=== PATIENT | male | born 1970 | race African-American/Black ===

== ENCOUNTER 2020-10-02 15:47 | Inpatient (IN) | payer OTHER, SELFPAY ==
[~2020-10-02 15:47] MED LIST: Iopamidol-370 76% 500 ML 1 ML ONE
[2020-10-02] MEDS ORDERED: Morphine 4 MG/ML VIAL ONE ×2 (16:04→18:08)
[2020-10-02] MEDS ORDERED: Boostrix 0.5 ML (Tdap) VIAL ONE (16:04)
[2020-10-02 16:20] LABS: #Basophils 0.1 thou/uL (0.0-0.2); #Eosinphils 0.1 thou/uL (0.0-0.7); #Lymphocytes 2.2 thou/uL (1.20-3.40); #Monocytes 0.6 thou/uL (0.11-0.59); #Neutrophils 4.8 thou/uL (1.40-6.50); %Basophils 1.3 % (0.0-1.0); %Eosinophils 0.9 % (0.0-10.0); %Lymphocytes 28.5 % (21.0-51.0); %Neutrophils 61.3 % (42.0-75.0); Hemoglobin 15.1 g/dL (14.0-18.0); Mean Corpuscular HGB CONC 32.5 g/dL (32.0-36.0); Mean Corpuscular Hemoglobin 28.8 pg (27.0-31.0); Mean Corpuscular Volume 88.5 fL (78.0-98.0); Mean Platelet Volume 8.2 fL (7.4-10.4); Platelet Count 236 thou/uL (130-400); RBC Distribution Width 13.2 % (11.5-14.5); Red Blood Cell (RBC) Count 5.27 mill/uL (4.70-6.10); White Blood Cell (WBC) Count 7.9 thou/uL (4.8-10.8)
--- NOTE | 2020-10-02 16:36 | CT ---
Exam: CT cervical spine without contrast HISTORY: Level 2 trauma. Patient was bucked off a horse. Landed on the back of her head. COMPARISON: None FINDINGS: No craniocervical dissociation. Appropriate alignment of the lateral masses of C1 and C2. Intact odon toid process Appropriate alignment of the facets. Straightening of normal cervical lordosis may be due to patient position, muscle spasm or cervical co llar. Soft tissue neck structures: No mass, lymphadenopathy or hematoma. No prevertebral soft tissue swelli ng. Upper mediastinum and lung apices: Unremarkable Central spinal canal: Neural foramina and central spinal canal are patent. Evaluation is limited by t echnique Vertebral bodies: Cervical spine vertebral body height is maintained. No fracture. IMPRESSION: 1. No cervical spine fracture. 2. Straightening of normal cervical lordosis as detailed above. If there is concern for ligamentous i njury, consider MRI.
[2020-10-02 16:44] LABS: ALT (SGPT) 27 U/L (8-55); AST (SGOT) 33 U/L (5-34); Albumin 4.1 g/dL (3.5-5.0); Alkaline Phosphatase 63 U/L (40-110); Anion Gap 16 mmol/L (10-20); BUN (Urea Nitrogen) 16 mg/dL (8.9-20.6); Bilirubin, Total 0.4 mg/dL (0.2-1.2); Calc. Creatinine Clearance 0 mL/min (70-130); Calcium 9.1 mg/dL (7.8-10.44); Carbon Dioxide 24 mmol/L (22-29); Chloride 104 mmol/L (98-107); Estimated GFR-MDRD 45; Globulin 3.2 g/dL (2.4-3.5); Glucose 108 mg/dL (70-105); Lipase 35 U/L (8-78); Potassium 3.9 mmol/L (3.5-5.1); Protein, Total 7.3 g/dL (6.0-8.3); Sodium 140 mmol/L (136-145)
--- NOTE | 2020-10-02 16:48 | CT ---
CT HEAD WITHOUT IV CONTRAST COMPARISON: None HISTORY: Level 2 trauma. Patient bucked off of a horse. Laceration to back of head. TECHNIQUE: Axial CT imaging at 5 mm intervals from vertex through skull base without contrast FINDINGS: There is increased density seen within the cerebral sulci in the bifrontal regions and left temporal lobe and greater in the region of the sylvian fissures bilaterally suggestive of subarachnoid hemorrhage. There is minimal amount of increased density seen in the anterior aspect of the left midd le cranial fossa which may represent a tiny subdural hemorrhage measuring 4 mm in greatest transverse dimension. Tiny amount of hemorrhage is seen in a right anterior frontal subdural location measuring less than 2 mm in greatest transverse dimensions. Trace amount of subdural hemorrhage in right parafalcine location anteriorly. There is no mass effect or midline shift. No acute cortical infarction is seen. The ventricular syste m is normal in size, shape, and position. Opacification of several left mastoid air cells are visualized. Better seen on CT facial bones obtain ed on this date, there is a transverse fracture extending through the mastoid portion of the left temporal bone as well as a nondisplaced fracture involving the squamosal portion of the left temporal bone. Fractures are better delineated on CT facial bones. . There is increased density fluid seen within the left sphenoid sinus suggesting hemorrhage. Mucous re tention cyst is seen in the right frontal sinus. There is scalp soft tissue swelling seen in the posterior parietal region IMPRESSION: 1. Evidence of intracranial hemorrhage with bifrontal subarachnoid hemorrhage as well as tiny subdura l hemorrhages along the inner table right anterior frontal bone as well as along the inner table of the left temporal region with tiny amount of subdural hemorrhage in a parafalcine location anteriorly on the right. Tiny subarachnoid hemorrhage is seen anteriorly in a prepontine location. 2. Fractures involving the mastoid as well as squamosal portions of the left temporal bone with subse quent opacification of left mastoid air cells. Please see CT scan facial bones for further details. 3. Hemorrhage within the left sphenoid sinus. A definite fracture is difficult to discern on this non enhanced CT scan of the head but there may be fracture involving the posterior wall of the left sphenoid sinus. 4. Posterior parietal scalp hematoma. 5. Above findings discussed with Dr. Copeland in the emergency department on 10/02/2020.
--- NOTE | 2020-10-02 16:48 | CT ---
Exam: Facial bone CT without contrast HISTORY: Level 2 trauma. Pain. FINDINGS: There does appear to be the left frontal sinus as well as anterior parafalcine subdural hematomas. Th ere is evidence of subarachnoid hemorrhage in the left and right sylvian fissure is. Visualized calvarium does not demonstrate a fracture. There is asymmetric opacification left mastoid air cells, left middle ear left external artery canal. There is a horizontal fracture/transverse is a fracture involving the bony left external auditory canal. Bilateral mandibular condyles are appropr iately located. Mandible is intact. Maxilla is intact. Zygomatic arches are intact. Osseous margins of the sinuses and mastoid air cells are intact. No nasa l bone fracture Partial opacification of the right frontal sinus. There is partial opacification left sphenoid sinus, with possible blood. Possible posterior sphenoid sinus fracture. Adequate aeration of the ethmoid air cells and bilateral maxillary sinuses. Bilateral ostiomeatal complexes are patent. IMPRESSION: 1. Fracture involving the left sphenoid sinus. 2. Left temporal bone fracture with associated posttraumatic hemorrhage in the mastoid air cells. Fra cture lucency extends into the bony left external auditory canal and canal with no evidence of hemorrhage in the extra and canal and neural. Results the cervical spine CT and facial bone CT discussed with Dr. Copeland 10/02/2020 at 4:44 PM code CR
--- NOTE | 2020-10-02 17:02 | CT ---
Exam: Chest CT with contrast Abdomen CT with contrast Pelvic CT with contrast CT of the thoracic and lumbar spine HISTORY: Level 2 trauma. Bucked off horse. Laceration. Correlation: None COMPARISON: None FINDINGS: Chest CT: Mediastinum: No mass, lymphadenopathy or hematoma. Aorta: The thoracic and abdominal aorta are normal caliber. No periaortic fat stranding. Heart: Normal heart size. No significant pericardial fluid Trachea and central bronchi: Patent Pleural spaces: No pleural effusion Right lung: Dependent atelectatic changes. No consolidation or contusion Left lung:Dependent atelectatic change. No consolidation or contusion. Pneumothorax: None Abdomen CT: Gallbladder: Unremarkable Portal vein: Patent Liver: Multiple subcentimeter hypodensities, too small to characterize.. Small enhancing foci, too sm all to characterize. Enhancing focus in the right hepatic lobe measures 1.2 x 0.9 cm. Spleen: Appropriate enhancement Pancreas: Appropriate enhancement Adrenal glands: There is nodularity the left or right adrenal gland, incompletely evaluated. Lymphadenopathy: No gastrohepatic, retrocrural or periportal lymphadenopathy Kidneys: Symmetric enhancement. No obstructive uropathy. Subcentimeter hypodense lesion in the right renal cortex cannot be further characterize. Mesentery: No mass, lymphadenopathy, free air or free fluid Alimentary canal: Gastric mucosa, duodenum and multiple normal caliber small bowel loops are identifi ed. Normal ileocecal junction. Scattered fecal material in nondistended, nondilated colon. There is diverticulosis. No diverticulitis. Evaluation the alimentary canal is limited by the lack of oral con trast Pelvis CT: No mass, nephropathy, free air or free fluid. Presacral fat is preserved. Osseous structures: Thorax: Scapula, sternum, clavicles and ribs are intact. No posttraumatic change. Pelvis: Intact bony pelvis. Intact obturator rings. Sacral ala are preserved. No evidence of a left o r right hip fracture. CT of the thoracic and lumbar spine: No fractures or malalignment. IMPRESSION: 1 No posttraumatic change in the chest abdomen pelvis 2. Nodularity left and right adrenal gland, incompletely evaluated. Indeterminate lesions of the live r. Nonemergent abdomen MRI. Results of the exam discussed with Dr. Mendieta 10/02/2020 at 4:58 PM Code CR
[2020-10-02 17:13] LABS: PTT 25.5 sec (22.9-36.1); Prothrombin Time 12.9 sec (12.0-14.7)
[2020-10-02] MEDS ORDERED: Milk Of Magnesia 30 ML UDCUP PO PRN (17:36)
[2020-10-02] MEDS ORDERED: Promethazine HCl 25 MG/ML VIAL IM PRN (17:36)
[2020-10-02] MEDS ORDERED: hydrALAZINE 20 MG/ML VIAL SLOW IVP PRN (17:36)
[2020-10-02] MEDS ORDERED: Acetaminophen 325 MG TAB PO PRN (17:36)
[2020-10-02] MEDS ORDERED: Labetalol HCl 100 MG/20 ML VIAL SLOW IVP PRN (17:36)
[2020-10-02] MEDS ORDERED: Promethazine 25 MG TAB PO PRN (17:36)
[2020-10-02] MEDS ORDERED: Docusate 100 MG CAP PO PRN (17:36)
[2020-10-02] MEDS ORDERED: Ondansetron PF 4 MG/2 ML Vial ONE (18:08)
--- NOTE | 2020-10-02 20:41 | HP ---
REQUESTING PHYSICIAN: Dr. Burak Copeland MD CONSULTATIONS: Neurosurgery, Dr. Driver. HISTORY OF PRESENT ILLNESS: The patient is a 50-year-old man who was riding a horse. When it threw him, he fell backwards and reportedly hit the back of his head. He denied loss of consciousness. He was brought to the emergency department as a level 2 trauma activation, where he underwent evaluation and examination, and was noted to have acute traumatic subarachnoid hemorrhages, temporal bone fracture, and a small traumatic subdural hemorrhage; at which time, we were asked to evaluate the patient for admission and obtain Neurosurgical consultations. ALLERGIES: NONE. CURRENT MEDICATIONS: None. PAST MEDICAL HISTORY: None, though the patient states that he believes he does have high blood pressure. The patient reports anxiety and bipolar disorder. PAST SURGICAL HISTORY: None. SOCIAL HISTORY: The patient smokes approximately one pack of cigarettes per day. Occasional alcohol use. Denies drug use. He is employed as a pie bakery laborer. He is currently single. REVIEW OF SYSTEMS: A 10-point review of systems is negative as otherwise stated. PHYSICAL EXAMINATION: VITAL SIGNS: Blood pressure 168/98, heart rate 91, respirations 15, oxygen saturation 95% on room air, and temperature 98.3. GENERAL: The patient is resting comfortably in bed. He is asleep when I entered, the patient has since arriving in the emergency department been given 12 mg of morphine over approximately 2-1/2 hours. The latest was 4 mg just prior to my arrival. The patient will open his eyes and answer my questions. He does follow commands giving him a Kermit Coma Scale of 14, -1 for eye opening. The nurses report this has been consistently his Terence Coma Scale and at times, he will be -1 for confusion. HEENT: Head is normocephalic with small abrasion to the occiput and left ear. His eyes, PERRLA bilaterally. Extraocular motion intact. Ears, left ear has dried blood in the external auditory canal. Right ear is clear. Nose, a small amount of dried blood in the left naris. Oropharynx is clear. NECK: Nontender. Trachea is midline with no JVD. CHEST: Clear to auscultation with good inspiratory and expiratory effort. HEART: Regular rate and rhythm. ABDOMEN: Soft, flat, nontender with active bowel sounds. EXTREMITIES: Neurovascularly intact x4. LABORATORY FINDINGS: White blood cell count 7.9, hemoglobin 15.1, hematocrit 46.6, and platelets 236. Sodium 140, potassium 3.9, chloride 104, CO2 of 24, BUN 16, creatinine 1.92, glucose 108. LFTs are unremarkable. Lipase 35. PT 13, INR 1.0, PTT 26. RADIOGRAPHIC REPORTS: CT of the brain without contrast shows evidence of intracranial hemorrhage with bifrontal subarachnoid hemorrhage as well as tiny subdural hemorrhages along the inner table, right anterior frontal bone as well as along the inner table of the left temporal region with tiny amount of subdural hemorrhage in the parafalcine location anterior on the right. There is a tiny subarachnoid hemorrhage seen anteriorly in the prepontine location. There are fractures involving the mastoid as well as squamous portion of the left temporal bone with subsequent opacification of the left mastoid air cell. There was hemorrhage noted within the left sphenoid sinus. CT of the facial bones without contrast shows again fracture involving the left sphenoid sinus, the left temporal bone fracture with associated posttraumatic hemorrhage in the mastoid air cells. Fracture lucency extends into the bony left external auditory canal and canal with no evidence of hemorrhage in the extra-auditory canal. CT of the C-spine without contrast shows no cervical spine fracture. CT of the chest, abdomen, and pelvis with IV contrast shows no posttraumatic changes in the chest, abdomen, or pelvis. ASSESSMENT: 1. Status post ejection from livestock, thrown from horse. 2. Traumatic subarachnoid hemorrhage. 3. Traumatic subdural hemorrhage. 4. Multiple skull fractures and facial fractures. 5. Altered mental status, secondary to above. PLAN: Plan will be to admit the patient to the surgical floor. He has been evaluated by Neurosurgery in the emergency department. The recommendation is repeat neuro exams every 2 hours and a followup CT of the brain in the morning. We have added a CT of the auditory canals in light of his fracture pattern. We will do pulmonary toilet, gastritis, and mechanical VTE prophylaxis, and narcotic pain management. The evaluation, examination, laboratory, and radiographic findings were discussed with Dr. Hdz nearly after this dictation. Job ID: [id number]
[2020-10-02] MEDS ORDERED: Ondansetron ODT 4 MG TAB PO PRN (21:01)
[2020-10-02] MEDS ORDERED: Dextrose 5% in Water 1,000 ML IV PRN (21:01)
[2020-10-02] MEDS ORDERED: Sodium Chloride 0.9% 1,000 ML IV SCH (21:01)
[2020-10-02] MEDS ORDERED: traMADol HCl 50 MG TAB PO PRN (21:01)
[2020-10-02] MEDS ORDERED: Ondansetron PF 4 MG/2 ML Vial IVP PRN (21:01)
[2020-10-02] MEDS ORDERED: Dextrose 50% Abboject 50 ML SYRINGE SLOW IVP PRN (21:01)
[2020-10-02] MEDS: Sodium Chloride 0.9% 1,000 ML IV SCH (22:04)
[2020-10-02] MEDS: levETIRAcetam 500 MG TAB PO SCH (22:04)
[2020-10-02] MEDS: Acetaminophen 500 MG TAB PO SCH (23:23)
[2020-10-02 23:50] VITALS: BMI 35.6
[2020-10-03] MEDS: Acetaminophen 500 MG TAB PO SCH ×3 (04:56→17:26)
[2020-10-03 05:08] LABS: #Monocytes 0.9 thou/uL (0.11-0.59); #Neutrophils 8.3 thou/uL (1.40-6.50); %Basophils 0.1 % (0.0-1.0); %Eosinophils 0.1 % (0.0-10.0); %Monocytes 8.6 % (0.0-10.0); %Neutrophils 81.2 % (42.0-75.0); Mean Corpuscular HGB CONC 32.5 g/dL (32.0-36.0); Mean Platelet Volume 8.3 fL (7.4-10.4); Platelet Count 222 thou/uL (130-400); Red Blood Cell (RBC) Count 4.82 mill/uL (4.70-6.10); White Blood Cell (WBC) Count 10.3 thou/uL (4.8-10.8)
[2020-10-03 05:25] LABS: Anion Gap 14 mmol/L (10-20); BUN (Urea Nitrogen) 18 mg/dL (8.9-20.6); Calc. Creatinine Clearance 109 mL/min (70-130); Carbon Dioxide 24 mmol/L (22-29); Chloride 103 mmol/L (98-107); Estimated GFR-MDRD 70; Glucose 121 mg/dL (70-105); Sodium 137 mmol/L (136-145)
--- NOTE | 2020-10-03 07:20 | PRG ---
DATE OF SERVICE: 10/03/2020 I personally interviewed and examined the patient, agreed with documentation of Nahid Moffett PA-C, dated 10/02/2020. Briefly, Dmitri Lozano was riding a horse yesterday when he was thrown from the horse. He fell and injured his head. He is brought to the emergency department, where CT examination of the spine was negative, but CT examination of brain revealed a temporal bone fracture on the left side and bilateral traumatic subarachnoid hemorrhage. He has been observed overnight and scan has been done this morning. Mr. Lozano feels a bit tired, but otherwise he is well. He is hungry and waiting for breakfast. Among the electronically recorded vital signs, I do not see any fevers. Blood pressures have been in the 100s to 130s. Mr. Lozano wakes up when I see him. His cranial nerves are working well. He is moving all extremities well. Does not have any lateralizing motor or sensory deficits. CT examination of brain this morning already shows significant washout of the traumatic subarachnoid blood. There is a bit remaining in the sylvian cistern on the left side, but the rest is gone. There is no mass effect. There is no subdural, epidural, or cerebral contusion. Temporal bone fracture is present, but there is no pneumocephalus. Mr. Lozano should avoid any blood thinning agents for the next 2 weeks. He is going to make a slow recovery. He is going to have headaches for a number of weeks, but they should slowly recede over time. He should not get back on a horse until he is 100% symptom-free, especially not get back on a horse who will michael him. Followup arrangements will be made in our clinic with a CT scan of the brain in about 3 weeks. We will call him with those results. Job ID: [id number] [facility]ERS[facility]
--- NOTE | 2020-10-03 07:38 | CT ---
PRELIMINARY REPORT/[facility]/EMERGENCY AFTER HOURS PROCEDURE EXAM: CT Head Without Intravenous Contrast. CLINICAL HISTORY: F/U [facility] TECHNIQUE: Axial computed tomography images of the head/brain without intravenous contrast. COMPARISON: October 02, 2020 FINDINGS: BRAIN: No acute intraparenchymal hemorrhage. No mass lesion. No CT evidence for acute territorial infarct. Diffuse subarachnoid hemorrhage noted on prior study is again seen but has diminished slightly in the interval, especially on the right. Question of a small interhemispheric subdural collection less conspicuous as well. Mastoid and paranasal sinus opacities are grossly unchanged. VENTRICLES: No hydrocephalus. IMPRESSION: Slight interval improvement. ELECTRONICALLY SIGNED BY: Nahid Hastings MD Oct 03, 2020 4:34:17 AM CAPACITOR TESTER This report is intended for review by the ordering physician only, in accordance of law. If you recei ve this report in error, please call [facility] at [phone]. FINAL REPORT Exam: Head CT without contrast HISTORY: Subarachnoid hemorrhage. Follow-up exam. COMPARISON: 10/02/2020 FINDINGS: Hemorrhage: Redemonstration of multifocal subarachnoid hemorrhage. The degree of subarachnoid blood h as decreased. Decreasing anterior parafalcine subdural hematoma. Brain parenchyma: Cortical soler-white matter differentiation is preserved. No mass effect or midline shift. Basilar cisterns are patent. Ventricular system: Ventricles and sulci are patent and symmetric. Calvarium: Intact. Sinuses and mastoid air cells: Stable opacification of the left sphenoid sinus and left mastoid air c ells. Previously noted opacification of the left middle ear and external auditory canal has decreased. IMPRESSION: 1. This report is in agreement with initial report by [facility]. 2. Decreased subarachnoid hemorrhage. Stable posttraumatic changes. Refer to earlier CT for further detail. Transcribed Date/Time: 10/03/2020 8:26 AM
--- NOTE | 2020-10-03 07:45 | CT ---
PRELIMINARY REPORT/[facility]/EMERGENCY AFTER HOURS PROCEDURE EXAM: CT Temporal Bones Without Intravenous Contrast. CLINICAL HISTORY: Eval for fx This is a CT IAC TECHNIQUE: Axial computed tomography images of the temporal bones without intravenous contrast. CONTRAST: Without COMPARISON: None provided. FINDINGS: There is a nondisplaced longitudinal fracture through the temporal bone on the left diffuse mastoid o pacities are present with intact tympanic membrane and middle ear structures. Opacification of the left sphenoid sinus although fracture extension into the sinus is not clearly visible. Inner ear structures are symmetric. TMJs and visualized facial bones are normal. There is partial opacification of the mastoid air cells also on the right without an associated fract ure. IMPRESSION: Nondisplaced longitudinal fracture through the left temporal bone. No clear complications of this fr acture identified. ELECTRONICALLY SIGNED BY: Nahid Hastings MD Oct 03, 2020 4:42:31 AM TEACHER ADVISOR This report is intended for review by the ordering physician only, in accordance of law. If you recei ve this report in error, please call [facility] at [phone]. FINAL REPORT Exam: Temporal bone CT without contrast HISTORY: Trauma. Pain. Intracranial hemorrhage. Asymmetric opacification of the left mastoid air fritz ls. Left mastoid fracture. FINDINGS: Right IAC/temporal bone: No posttraumatic changes. Left IAC/temporal bone: The internal auditory canal, cochlea, vestibule and semicircular canals have an appropriate appearance and configuration. Ossicular chain is intact. Stapedial footplate is probably located. Appropriate aeration of the middle ear. Facial nerve appears to be unremarkable. Te gmen tympani and tegmen mastoideum are preserved. There is partial opacification of the left mastoid air cells. There is a longitudinal fracture involving the left mastoid air cells. There is mi ld thickening of the external auditory canal soft tissues. There is a fracture involving the anterior margin of the bony left external auditory canal. IMPRESSION: 1. This report is in agreement with initial report by [facility]. 2. Longitudinal fracture involving the left temporal bone. Associated posttraumatic changes. 3. There is a fracture involving the anterior margin of the bony left external auditory canal. Transcribed Date/Time: 10/03/2020 8:29 AM
--- NOTE | 2020-10-03 07:48 | CON ---
DATE OF CONSULTATION: 10/02/2020 CHIEF COMPLAINT: Thrown from horse. HISTORY OF PRESENT ILLNESS: Mr. Lozano is a 50-year-old gentleman who presents to the emergency room today being ejected from his horse. The patient states something spooked his horse and he did not have the proper boots on and was unable to get any traction and fell off his horse. He states he never lost consciousness and is only complaining of a headache. No other pain. Head CT shows some evidence of an intracranial hemorrhage with bifrontal subarachnoid hemorrhage as well as a tiny subdural hemorrhage. Patient reports he is not on any blood thinners. The patient on exam is moving all his extremities. He denies any extremity weakness, bowel or bladder dysfunction. REVIEW OF SYSTEMS: CONSTITUTIONAL: Denies fever or chills. ENT: Denies change in vision or hearing. CARDIAC: Denies chest pain, shortness of breath, or diaphoresis. PULMONARY: Denies shortness of breath, cough, or hemoptysis. GI: Denies fecal incontinence, nausea, vomiting, diarrhea, change in stool formation and consistency. : Denies urinary incontinence, trouble with urination, frequency of urination, or bloody urine. SKIN: Reports bruising, abrasions, bleeding. MUSCULOSKELETAL: As per history of present illness. NEUROLOGICAL: As per history of present illness. PSYCHOLOGICAL: As per history of present illness. PAST MEDICAL HISTORY: No past medical history. PAST SURGICAL HISTORY: No surgical history. PSYCHIATRIC HISTORY: 1. Anxiety. 2. Bipolar disorder. SOCIAL HISTORY: The patient denies alcohol or illicit drugs. The patient currently smokes cigarettes. MEDICATIONS: None. ALLERGIES: NO KNOWN DRUG ALLERGIES. FAMILY HISTORY: Noncontributory/not relevant. PHYSICAL EXAMINATION: HEENT: Pupils are equal. Extraocular movements are intact. NECK: Soft and supple. No masses are noted. Range of motion is intact and nonpainful. NEUROLOGICAL: Awake, alert, and oriented x3. Memory, attention, fund of knowledge, and language are normal. Cranial nerves grossly intact. Upper and lower extremities, normal. Free active range of motion in all extremities. No focal motor weakness. No reflex asymmetry. GCS 15. IMAGING DATA: Head CT, evidence of intracranial hemorrhage with bifrontal subarachnoid hemorrhage as well as a tiny subdural hemorrhage. CT of the cervical spine showed no cervical spine fractures. ASSESSMENT: Subarachnoid hemorrhage, subdural hemorrhage. PLAN: Repeat CT of the brain tomorrow morning. If scan shows improvement or no change, transfer care to Trauma Service. Supportive care. No intracranial surgery at this time. We will have him follow up in 2 to 3 weeks in our clinic and repeat the scan prior to the visit. Job ID: [id number] MTDD
[2020-10-03] MEDS: levETIRAcetam 500 MG TAB PO SCH ×2 (08:32→20:48)
[2020-10-03] MEDS ORDERED: Famotidine 20 MG TAB PO SCH (09:00)
[2020-10-03] MEDS: Sodium Chloride 0.9% 1,000 ML IV SCH (11:40)
[2020-10-03 12:14] LABS: SARS-CoV-2 MS2 Positive; SARS-CoV-2 N Gene Negative; SARS-CoV-2 S Gene Negative; SARS-CoV-2 by NAA Not Detected (NotDetected); SARS-CoV-2 orf1ab Negative
[2020-10-03] MEDS ORDERED: Acetaminophen 325 MG TAB PO PRN (13:50)
[2020-10-03] MEDS: Nicotine 14 MG PATCH TD SCH (15:37)
--- NOTE | 2020-10-03 16:06 | RAD ---
SACRUM AND COCCYX 3 VIEWS: Date: 10/03/2020 HISTORY: patient fell off horse. FINDINGS: SI joints are symmetric. On the lateral view, there is some cortical irregularity near the sacrococcy geal junction. This is suspicious for a nondisplaced fracture. IMPRESSION: Findings suspicious for a nondisplaced fracture near the sacrococcygeal junction. POS: SAMIA
[2020-10-03] MEDS: traMADol HCl 50 MG TAB PO PRN (20:48)
[2020-10-04] MEDS: Acetaminophen 500 MG TAB PO SCH ×5 (00:35→23:20)
[2020-10-04] MEDS: Sodium Chloride 0.9% 1,000 ML IV SCH ×2 (00:36→12:58)
--- NOTE | 2020-10-04 03:35 | PRG ---
DATE OF SERVICE: SUBJECTIVE: Patient was seen this evening during rounds. He was taking a shower. He reported no acute events and no concerns. Nursing reported no acute events. OBJECTIVE: VITAL SIGNS: Temperature 97.9, pulse 78, respirations 20, oxygen saturation 97% on room air, and blood pressure 119/68. GENERAL: Well-appearing middle-aged male with no signs of acute distress. PULMONARY: Equal chest rise and fall. No signs of acute respiratory distress. ASSESSMENT: 1. Status post ejection from horse. 2. Intracranial hemorrhage with bifrontal subarachnoid hemorrhages and subdural hemorrhages. 3. Temporal bone fracture. 4. Left sphenoid sinus fracture. 5. Sacral fracture. 6. History of anxiety and bipolar disorder. 7. Acute kidney injury, improving. PLAN: Continue current diet and pain regimen. Continue physical and occupational therapy. Continue normal saline at 75 an hour. Repeat blood work in the morning. Patient is uninsured and will likely need to be discharged home to family care. We will reevaluate resources in the morning. Job ID: [id number]
[2020-10-04] MEDS: traMADol HCl 50 MG TAB PO PRN (05:17)
[2020-10-04 06:12] LABS: Anion Gap 10 mmol/L (10-20); BUN (Urea Nitrogen) 13 mg/dL (8.9-20.6); Calc. Creatinine Clearance 119 mL/min (70-130); Calcium 8.5 mg/dL (7.8-10.44); Carbon Dioxide 26 mmol/L (22-29); Chloride 105 mmol/L (98-107); Estimated GFR-MDRD 79; Glucose 116 mg/dL (70-105); Phosphorus 2.2 mg/dL (2.3-4.7); Sodium 137 mmol/L (136-145)
--- NOTE | 2020-10-04 06:34 | PRG ---
DATE OF SERVICE: 10/03/2020 SUBJECTIVE: The patient is a 50-year-old male, status post ejection from horse with resulting subarachnoid hemorrhage, subdural hemorrhage, and multiple skull and facial fractures. Hospital day 1. The patient reports pain to the back of the head related to where he fell as well as buttock and tailbone pain. He states that the pain medication has not been helpful thus far. He requests a nicotine patch due to inability to smoke cigarettes while admitted to the hospital. He was placed on clear fluids this morning until repeat CT of the brain was completed. He states that he did not eat breakfast as a result. PHYSICAL EXAMINATION: VITAL SIGNS: Temperature 98.0 degrees Fahrenheit, blood pressure 122/70, heart rate 81, respiratory rate 18, oxygen saturation 96% on room air. GENERAL APPEARANCE: The patient is sitting comfortably in a chair beside his bed. He is currently eating his meal. He is conversational, alert, and oriented. [place] Coma Score is 15. HEENT: Small abrasion present to the occiput and left ear. Head is normocephalic. Extraocular movements are intact. Left ear has dried blood present on the external auditory canal. HEART: Regular rate and rhythm. ABDOMEN: Soft, nontender. Positive bowel sounds. EXTREMITIES: Neurovascularly intact x4. LABORATORY FINDINGS: White blood cell count 10.3, hemoglobin 14.0. Sodium 137, potassium 4.0, creatinine 1.31, improved from 1.92 upon admission on 10/02. RADIOGRAPHIC FINDINGS: Repeat CT of the brain showed slight interval improvement of the subarachnoid hemorrhage, especially on the right. Small interhemispheric subdural collection is less conspicuous on repeat scan. Internal auditory canal CT is significant for a nondisplaced longitudinal fracture through the left temporal bone without complications identified. ASSESSMENT AND PLAN: 1. Status post ejection from livestock specifically horse. 2. Traumatic subarachnoid hemorrhage, improved. 3. Traumatic subdural hemorrhage, improved. 4. Longitudinal temporal fracture. 5. Altered mental status, resolved. The patient was encouraged to continue working with Physical and Occupational Therapy. He will continue using pulmonary toilet. Continue gastritis and mechanical VTE prophylaxes. The patient's tramadol 50 mg q.6 p.r.n. will be increased to tramadol 100 mg q.6 p.r.n. He will be started on a nicotine 14 mg patch. Fluids will be potentially discontinued this afternoon once the patient has adequate PO intake. Speech pathology has been consulted for cognition followup. Sacral x-ray will be ordered to follow up on sacral pain. The patient was seen and evaluated by Dr. Lantigua during morning rounds. The plan of care was discussed with the patient who is in agreement. Job ID: [id number] MTDD
[2020-10-04] MEDS ORDERED: Acetaminophen/Codeine 30-300mg Tablet PO PRN (08:43)
[2020-10-04] MEDS ORDERED: traMADol HCl 50 MG TAB PO SCH (08:45)
[2020-10-04] MEDS ORDERED: FLU VACC QS2020-21(6MOS UP)/PF 60 MCG/0.5 ML SYRINGE IM ONE (09:00)
[2020-10-04] MEDS ORDERED: Acetaminophen/Codeine 30-300mg Tablet PO SCH (09:00)
[2020-10-04] MEDS: Gabapentin 300 MG CAP PO SCH ×3 (09:59→21:17)
[2020-10-04] MEDS: levETIRAcetam 500 MG TAB PO SCH ×2 (09:59→21:17)
[2020-10-04] MEDS: diphenhydrAMINE 50 MG CAP PO PRN ×2 (13:01→23:23)
[2020-10-04] MEDS: Nicotine 14 MG PATCH TD SCH (14:56)
--- NOTE | 2020-10-04 21:28 | PRG ---
DATE OF SERVICE: 10/04/2020 SUBJECTIVE: The patient is a 50-year-old male status post ejection from a horse with a resulting subarachnoid hemorrhage, subdural hemorrhage and multiple skull and facial fractures. Hospital day 2. The patient reports continued pain at the back of his head and at his tailbone. He states that the medication has not been effective in improving this pain. He states that he is tolerating his diet well. He worked with speech pathology yesterday, who remarks that his cognitive impairment is moderate. They are currently following. The patient states that he is unable to ambulate due to pain. Case Management rehab screening has been ordered and will be followed up. OBJECTIVE: VITAL SIGNS: Temperature 97.7 degrees Fahrenheit, blood pressure 132/83, heart rate 75, respiratory rate 18, and oxygen saturation 97% on room air. GENERAL APPEARANCE: The patient is sitting in the bed. He is conversational, alert, and oriented. [place] coma scale is 15. HEENT: Small abrasion present to the occiput and left ear. Head is normocephalic. Extraocular movements are intact. HEART: Regular rate and rhythm. ABDOMEN: Soft and nontender. Positive bowel sounds. EXTREMITIES: Neurovascularly intact x4. LABORATORY FINDINGS: Sodium 137, potassium 4.0, creatinine 1.19, phosphorus 2.2, and magnesium 2.0. Radiographic data, nondisplaced fracture near the sacrococcygeal junction. ASSESSMENT AND PLAN: 1. Status post ejection from livestock, specifically horse. 2. Traumatic subarachnoid hemorrhage, improved. 3. Traumatic subdural hemorrhage, improved. 4. Longitudinal temporal fracture. 5. Nondisplaced fracture at the sacrococcygeal junction. Plan is to continue supportive care. The patient was encouraged to continue working with Physical and Occupational therapy. Rehab screening has been placed to case management and will follow up appropriately. We will continue using pulmonary toilet, gastritis and mechanical venous thromboembolism prophylaxis. The patient has been discontinued from tramadol due to temporal subarachnoid hemorrhage. He will be started on Tylenol No.3. The patient will also be started on gabapentin. Hypophosphatemia will not be supplemented as the patient is eating an appropriate diet. The patient was seen and evaluated by Dr. Lantigua during morning rounds. The plan of care was discussed with the patient who is in agreement. Job ID: [id number] [facility]
--- NOTE | 2020-10-05 01:24 | PRG ---
DATE OF SERVICE: SUBJECTIVE: Patient was seen this evening during rounds. He was lying in bed, resting comfortably and asleep with no signs of acute distress. Nursing reported no acute events. OBJECTIVE: VITAL SIGNS: Temperature 97.9, pulse 72, respirations 16, oxygen saturation 96% on room air, and blood pressure 133/89. GENERAL: Well-appearing middle-aged male, lying in bed, resting comfortably and asleep, but no signs of acute distress. PULMONARY: Equal chest rise and fall. No signs of acute respiratory distress. ASSESSMENT: 1. Status post ejected from horse. 2. Intracranial hemorrhage in the bilateral frontal with subarachnoid and subdural hemorrhages. 3. Temporal bone fracture. 4. Left sphenoid sinus fracture. 5. Sacral fracture. 6. Acute kidney injury, resolved. 7. History of anxiety and bipolar disorder. PLAN: Continue current diet and pain regimen. Tramadol discontinued due to concern for seizures with his temporal bone fracture. Continue Keppra for seizure prophylaxis. Discontinue IV fluids. Add Silvadene for road rash on his back. Continue physical and occupational therapy. Patient will likely be discharged home when safe. Job ID: [id number]
[2020-10-05] MEDS: Acetaminophen 500 MG TAB PO SCH ×4 (05:25→23:27)
[2020-10-05] MEDS: Silver Sulfadiazine 50 GM TUBE TOP SCH ×2 (09:09→20:07)
[2020-10-05] MEDS: levETIRAcetam 500 MG TAB PO SCH ×2 (09:12→20:05)
[2020-10-05] MEDS: Gabapentin 300 MG CAP PO SCH ×3 (09:13→20:05)
[2020-10-05] MEDS: Cyclobenzaprine 10 MG TAB PO PRN (09:17)
[2020-10-05] MEDS: Nicotine 14 MG PATCH TD SCH (14:32)
--- NOTE | 2020-10-06 00:17 | PRG ---
DATE OF SERVICE: 10/05/2020 SUBJECTIVE: Patient was seen this evening during rounds. He was lying on his right side, resting comfortably and asleep with no signs of acute distress. Nursing reported no acute events. OBJECTIVE: VITAL SIGNS: Temperature 97.9, pulse 83, respirations 18, oxygen saturation 96% on room air, blood pressure 138/87. GENERAL: Well-appearing middle-aged male, lying on his right side, sleeping, but no signs of acute distress. PULMONARY: Equal chest rise and fall. No signs of acute respiratory distress. ASSESSMENT: 1. Status post ejected from horse. 2. Mild traumatic brain injury, bilateral frontal. 3. Temporal bone fracture. 4. Facial fractures. 5. Sacral fracture. 6. Acute kidney injury, resolved. 7. History of anxiety and bipolar disorder. PLAN: Continue current diet and pain regimen. Continue physical and occupational therapy. Continue supportive care. The patient will likely be discharged to the care of his family tomorrow. He is ready for discharge at this time. Job ID: [id number]
[2020-10-06] MEDS: Acetaminophen 500 MG TAB PO SCH ×3 (05:50→18:20)
--- NOTE | 2020-10-06 06:21 | PRG ---
DATE OF SERVICE: 10/05/2020 SUBJECTIVE: The patient is a 50-year-old male, status post ejection from a horse resulting subarachnoid hemorrhage, subdural hemorrhage, and multiple skull and facial fractures. Hospital day #3, the patient states that his headache has improved, but he still has persistent tailbone pain. He notes that the medication will intermittently relieves his pain, but then returns. He says that he is tolerating his diet well. He has been working with speech pathology, physical therapy, and occupational therapy. He was able to walk 110 feet yesterday with physical therapy, which is an improvement from the day before. Physical therapy has recommended home with 24-hour supervision or placement. The patient states that he does not desire placement and wants to go home. His mother has agreed to allow the patient to live in her home with supervision, but she currently needs time to get someone to stay with him while she is gone during the day. OBJECTIVE: VITAL SIGNS: Blood pressure 120/88, heart rate 76, respiratory rate 14, oxygen saturation 96% on room air, temperature 97.9. GENERAL APPEARANCE: The patient is sitting on the side of the bed. He is conversational, alert, and oriented. Te[place] coma scale is 15. HEENT: Small abrasion present to the occiput and left ear. Normocephalic. Extraocular movements are intact. HEART: Regular rate and rhythm. ABDOMEN: Soft, nontender. Positive bowel sounds. EXTREMITIES: Neurovascularly intact x4. NEUROLOGICAL: The patient becomes tearful while speaking with the mother on the phone discussing how much he would like to go home. Mood is labile, ranging from tearful to anger. The patient's mother reports this is not his baseline. The patient also makes grandiose speech including that he has a norwood at home who does all of his cooking and cleaning. The patient's mother disputes these claims. LABORATORY AND RADIOGRAPHIC DATA: None to review this a.m. ASSESSMENT: 1. Status post ejection from horse. 2. Traumatic subarachnoid hemorrhage, improved. 3. Traumatic subdural hemorrhage, improved. 4. Longitudinal temporal fracture. 5. Nondisplaced fracture at the sacrococcygeal junction. PLAN: Continue supportive care. The patient was encouraged to continue working with Physical and Occupational Therapy. The patient has declined placement. Therefore, we are in coordination with the patient's mother to obtain 24-hour supervision when he is discharged to her care. We will continue pulmonary toilet, gastritis and mechanical venous thromboembolism prophylaxis. Episode of itching yesterday afternoon is likely due to Tylenol No. 3 that has been discontinued. Scabies check was negative. The patient was seen and evaluated by Dr. Lantigua during morning rounds. The plan of care was discussed with the patient and his mother, who are in agreement. Job ID: [id number] MTDD
[2020-10-06] MEDS: Gabapentin 300 MG CAP PO SCH ×3 (08:29→20:28)
[2020-10-06] MEDS: levETIRAcetam 500 MG TAB PO SCH ×2 (08:30→20:28)
[2020-10-06] MEDS: Silver Sulfadiazine 50 GM TUBE TOP SCH (08:32)
[2020-10-06] MEDS: Morphine 2 MG/ML VIAL SLOW IVP PRN ×2 (11:40→20:30)
--- NOTE | 2020-10-06 14:27 | PRG ---
DATE OF SERVICE: 10/06/2020 SUBJECTIVE: The patient was seen during morning rounds with Dr. Lantigua. The patient is sitting up on the side of the bed, upset, complaining of head pain. The patient is hospital day #4, status post ejection from horse resulting in subarachnoid hemorrhage, subdural hemorrhage, and multiple skull fractures. The patient has had some drainage from his left ear and continues to complain of ringing in his left ear. The patient also complains of persistent tailbone pain. The patient becomes agitated and upset easily. The patient's mother is currently at bedside. She is trying to find someone who will stay with him 23/06 as he has been impulsive. The patient's current GCS is E4, V5, M6. The patient has been ambulating without any difficulties. The patient's urinary output has been adequate. OBJECTIVE: VITAL SIGNS: Temperature 97.9, pulse 90, respirations 18, SpO2 of 97% on room air, blood pressure 152/95. GENERAL: Middle-aged male, awake, alert, tearful, in no distress. HEENT: No active drainage from left ear currently. Pupils are equal bilateral. Mucous membranes are moist. RESPIRATORY: Good inspiratory and expiratory effort. No respiratory distress. CARDIAC: Regular rate, regular rhythm. No pedal edema. EXTREMITIES: Neurovascularly intact x4. Strength 5/5 in all extremities. NEUROLOGIC: GCS 15. The patient becomes tearful when speaking. The patient upset that he will not be able to work and worried about how he is going to pay bills. The patient's mood has been labile. LABORATORY DATA: No new labs to evaluate today. ASSESSMENT: 1. Status post ejection from horse. 2. Traumatic subarachnoid hemorrhage, improved. 3. Traumatic subdural hemorrhage, stable. 4. Longitudinal temporal bone fracture, stable. 5. Nondisplaced fracture at the sacrococcygeal junction. 6. History of anxiety and bipolar, nontreated. PLAN: Continue supportive care and pain regimen. Continue physical and occupational therapy. Continue speech therapy for cognition. We will add Valium for anxiety and agitation. Mother does state that the patient has been hospitalized at a psychiatric facility. When this has spoken of, the patient becomes extremely angry and crying. The patient begs to please not put him on the same medications as they made him feel bad. We will have Case Management work with the patient on short-term disability options. We will attempt to [facility], this was explained to the patient and family that this is very unlikely that we will get approval, but we will try. Mother will continue to find someone who will stay with the patient 23/06. The plan was discussed with the patient and family, who agreed. The patient was examined by Dr. Lantigua. Job ID: [id number]
[2020-10-06] MEDS: Nicotine 14 MG PATCH TD SCH (16:18)
--- NOTE | 2020-10-07 00:48 | PRG ---
DATE OF SERVICE: 10/06/2020 SUBJECTIVE: The patient was seen this evening during rounds. He was lying on his right side, sleeping with no signs of acute distress. Nursing reported no acute events. OBJECTIVE: VITAL SIGNS: Temperature 97.5, pulse 78, respirations 19, oxygen saturation 98% on room air, and blood pressure 154/99. GENERAL: Well-appearing middle-aged male, lying on his right side, asleep with no signs of acute distress. PULMONARY: Equal chest rise and fall. No signs of acute respiratory distress. ASSESSMENT: 1. Status post ejected from horse. 2. Subdural and subarachnoid hemorrhages in the bilateral frontal region. 3. Left temporal bone fracture. 4. Sphenoid fracture. 5. Nondisplaced fracture near sacrococcygeal junction. 6. Acute kidney injury, resolved. 7. History of anxiety and bipolar disorder. PLAN: Continue current diet and pain regimen. Continue physical and occupational therapy. Continue supportive care. Job ID: [id number]
[2020-10-07] MEDS: Acetaminophen 500 MG TAB PO SCH ×4 (01:32→18:38)
[2020-10-07] MEDS: Morphine 2 MG/ML VIAL SLOW IVP PRN (02:57)
[2020-10-07] MEDS: Silver Sulfadiazine 50 GM TUBE TOP SCH ×3 (03:02→20:00)
[2020-10-07 05:05] LABS: #Eosinphils 0.1 thou/uL (0.0-0.7); #Lymphocytes 1.4 thou/uL (1.20-3.40); #Monocytes 0.5 thou/uL (0.11-0.59); #Neutrophils 4.2 thou/uL (1.40-6.50); %Basophils 0.6 % (0.0-1.0); %Eosinophils 0.9 % (0.0-10.0); %Lymphocytes 22.9 % (21.0-51.0); %Monocytes 8.3 % (0.0-10.0); %Neutrophils 67.2 % (42.0-75.0); Hemoglobin 13.9 g/dL (14.0-18.0); Mean Corpuscular HGB CONC 32.2 g/dL (32.0-36.0); Mean Corpuscular Hemoglobin 29.1 pg (27.0-31.0); Mean Corpuscular Volume 90.4 fL (78.0-98.0); Mean Platelet Volume 7.3 fL (7.4-10.4); Platelet Count 252 thou/uL (130-400); RBC Distribution Width 12.9 % (11.5-14.5); Red Blood Cell (RBC) Count 4.79 mill/uL (4.70-6.10); White Blood Cell (WBC) Count 6.2 thou/uL (4.8-10.8)
[2020-10-07 05:26] LABS: Anion Gap 13 mmol/L (10-20); BUN (Urea Nitrogen) 15 mg/dL (8.9-20.6); Calc. Creatinine Clearance 119 mL/min (70-130); Calcium 9.1 mg/dL (7.8-10.44); Carbon Dioxide 26 mmol/L (22-29); Chloride 105 mmol/L (98-107); Estimated GFR-MDRD 79; Glucose 108 mg/dL (70-105); Magnesium 1.7 mg/dL (1.6-2.6); Phosphorus 3.9 mg/dL (2.3-4.7); Potassium 3.7 mmol/L (3.5-5.1); Sodium 140 mmol/L (136-145)
[2020-10-07] MEDS: Gabapentin 300 MG CAP PO SCH ×3 (08:48→20:00)
[2020-10-07] MEDS: levETIRAcetam 500 MG TAB PO SCH ×2 (08:49→20:00)
--- NOTE | 2020-10-07 12:51 | PRG ---
DATE OF SERVICE: 10/07/2020 SUBJECTIVE: The patient was seen during morning rounds, awake, alert, ambulating with physical therapy. The patient is oriented with GCS of 15 currently. The patient is more appropriate today and not having bouts of crying and anger. The patient does continue to have some mild head pain. The patient also reports continued ringing in his left ear, but no continued drainage. The patient continues to have good appetite and appropriate urinary output for age and weight. The patient was placed on Valium yesterday for anxiety and agitation, which seems to help. SUBJECTIVE: VITAL SIGNS: Temperature 98.1, pulse 86, respirations 18, SpO2 96% on room air, blood pressure 135/79. GENERAL: A well-appearing middle-aged male, awake, alert, in no distress. HEENT: Atraumatic, normocephalic, equal pupils, extraocular muscles intact, visual inspection of left tympanic membrane appears to be ruptured. No drainage noted. There is no pain with exam. Right tympanic membrane pearly soler. RESPIRATORY: Good inspiratory and expiratory effort, no respiratory distress. EXTREMITIES: Neurovascularly intact x4, strength 5/5 in all extremities. NEUROLOGIC: GCS 15. LABORATORY DATA: WBC 6.2, RBC 4.7, hemoglobin 13.9, hematocrit 43.2, platelets 252. Sodium 140, potassium 3.7, chloride 105. BUN 15, creatinine 1.19, estimated GFR 79, glucose 108, calcium 9.1, phosphorus 3.9, magnesium 1.7. DIAGNOSTICS: There is no new diagnostics to review today. ASSESSMENT: 1. Status post ejection from horse. 2. Traumatic subarachnoid hemorrhage, stable. 3. Traumatic subdural hemorrhage, stable. 4. Longitudinal temporal bone fracture, stable. 5. Ruptured left tympanic membrane, stable. 6. Nondisplaced fracture of the sacral coccygeal junction. 7. History of anxiety and bipolar, non treated. PLAN: Continue supportive care and pain regimen. Continue physical and occupational therapy. Continue speech therapy for cognition. The patient's family is attempting to find someone to stay with the patient 23/06 as he cannot be alone due to his impulsive behaviors and head injury. We will continue to monitor. The plan was discussed with the patient. Job ID: [id number]
[2020-10-07] MEDS: Nicotine 14 MG PATCH TD SCH (14:47)
[2020-10-07] MEDS: Diazepam 5 MG TAB PO PRN (16:39)
[2020-10-07] MEDS: diphenhydrAMINE 50 MG CAP PO PRN (20:00)
[2020-10-08] MEDS: Acetaminophen 500 MG TAB PO SCH ×5 (00:36→23:33)
--- NOTE | 2020-10-08 03:00 | PRG ---
DATE OF SERVICE: 10/07/2020 SUBJECTIVE: The patient was seen this evening during rounds. He was lying on his right side, sleeping with no signs of acute distress. Nursing reported no acute events. OBJECTIVE: VITAL SIGNS: Temperature 98.6, pulse 94, respirations 16, oxygen saturation 97% on room air, blood pressure 130/85. GENERAL: Well-appearing middle-aged male, lying in bed, resting comfortably and asleep with no signs of acute distress. PULMONARY: Equal chest rise and fall. No signs of acute respiratory distress. ASSESSMENT: 1. Status post ejected from horse. 2. Intracranial and frontal subarachnoid and subdural hemorrhages. 3. Left temporal bone fracture. 4. Left sphenoid sinus fracture. 5. Sacral-gluteal joint disruption, stable. 6. Left-sided tympanic membrane rupture. 7. Acute kidney injury, resolved. 8. History of anxiety and bipolar disorder. PLAN: Continue current diet and pain regimen. Continue physical and occupational therapy. Continue therapy with speech language pathology for cognition. Continue supportive care. The patient is pending discharge likely with family support as he does not have much resources. He is ready for discharge at this time. Job ID: [id number]
[2020-10-08] MEDS: levETIRAcetam 500 MG TAB PO SCH ×2 (08:45→20:09)
[2020-10-08] MEDS: Silver Sulfadiazine 50 GM TUBE TOP SCH ×2 (08:46→20:10)
[2020-10-08] MEDS: Gabapentin 300 MG CAP PO SCH ×3 (08:46→20:09)
--- NOTE | 2020-10-08 14:02 | PRG ---
DATE OF SERVICE: 10/08/2020 SUBJECTIVE: The patient was seen during morning rounds, sitting up in a chair, awake, alert, in no distress. The patient remains GCS of 15. The patient had no overnight events. The patient continues to ambulate and work with Physical Therapy. The patient's mom is waiting to get approval from the court as she has custody of a 3-year-old and not allowed to have anyone live with her. Once she gets approval from the court, the patient will be released in her care as the patient needs 24-hour supervision due to his head injury. The patient's mother states there is no one else that will be able to stay with him. OBJECTIVE: VITAL SIGNS: Temperature 97.8, pulse of 83, respirations 18, SpO2 of 98% on room air, and blood pressure 126/86. GENERAL: Well-appearing, middle-aged male, awake, alert, no distress. RESPIRATORY: Good inspiratory and expiratory effort. No respiratory distress. EXTREMITIES: Moves all extremities. Neurovascularly intact x4. NEUROLOGIC: GCS 15. LABORATORY DATA: No new labs to evaluate today. ASSESSMENT: 1. Status post ejection from horse. 2. Traumatic subarachnoid hemorrhage, stable. 3. Traumatic subdural hemorrhage, stable. 4. Longitudinal temporal bone fracture, stable. 5. Fractured left tympanic membrane, stable. 6. Nondisplaced fracture of the sacrococcygeal junction, pain improved. 7. Ringing in left ear from temporal bone fracture. 8. History of anxiety and bipolar, nontreated. PLAN: Continue supportive care and pain regimen. Continue physical and occupational therapy. Continue speech therapy for cognition. Waiting for mom to get approval from the court. So, the patient can go home with her for 24/7 care. Continue to monitor for any drainage in left ear. Plan was discussed with attending, who agrees. Job ID: [id number]
[2020-10-08] MEDS: Diazepam 5 MG TAB PO PRN (16:02)
[2020-10-08] MEDS: Nicotine 14 MG PATCH TD SCH (18:19)
[2020-10-08] MEDS: diphenhydrAMINE 50 MG CAP PO PRN (20:09)
[2020-10-08] MEDS: Cyclobenzaprine 10 MG TAB PO PRN (20:09)
--- NOTE | 2020-10-09 00:07 | PRG ---
DATE OF SERVICE: 10/08/2020 SUBJECTIVE: The patient was seen this evening during rounds. He was lying in bed, resting comfortably, sleeping on his right side. Nursing reported no acute events. OBJECTIVE: VITAL SIGNS: Temperature 99.4, pulse 95, respirations 18, oxygen saturation 96% on room air, blood pressure 139/92. ASSESSMENT: 1. Status post ejected from horse. 2. Mild traumatic brain injury. 3. Left temporal bone fracture. 4. Left sphenoid fracture. 5. Sacrogluteal junction fracture. 6. Left ruptured tympanic membrane. 7. Acute kidney injury, resolved. 8. History of anxiety and bipolar disorder. PLAN: Continue current diet and pain regimen. Continue physical and occupational therapy. Continue supportive care. The patient is pending discharge to family as he does not have any insurance. Job ID: [id number]
[2020-10-09] MEDS: Diazepam 5 MG TAB PO PRN ×3 (05:10→20:16)
[2020-10-09] MEDS: Acetaminophen 500 MG TAB PO SCH ×3 (05:10→19:10)
[2020-10-09] MEDS: Gabapentin 300 MG CAP PO SCH ×3 (08:10→20:16)
[2020-10-09] MEDS: levETIRAcetam 500 MG TAB PO SCH ×2 (08:10→20:16)
[2020-10-09] MEDS: Silver Sulfadiazine 50 GM TUBE TOP SCH ×2 (08:11→22:34)
[2020-10-09] MEDS: Nicotine 14 MG PATCH TD SCH (15:51)
[2020-10-09] MEDS: Cyclobenzaprine 10 MG TAB PO PRN (20:16)
--- NOTE | 2020-10-09 23:55 | PRG ---
DATE OF SERVICE: 10/09/2020 SUBJECTIVE: Patient was seen this evening during rounds. He was lying in bed on his left side, resting comfortably and asleep, but no signs of acute distress. Nursing reported no acute events. OBJECTIVE: VITAL SIGNS: Temperature 97.9, pulse 83, respirations 16, oxygen saturation 99% on room air, blood pressure 111/81. ASSESSMENT: 1. Status post ejected from horse. 2. Mild traumatic brain injury. 3. Left temporal bone fracture. 4. Left sphenoid sinus fracture. 5. Sacrogluteal junction fracture. 6. Left ruptured tympanic membrane. 7. Acute kidney injury, resolved. 8. History of anxiety and bipolar disorder. PLAN: Continue current diet and pain regimen. Continue physical and occupational therapy. Discontinue IV morphine. Continue supportive care. Patient is ready for discharge at this time. Job ID: [id number]
[2020-10-10] MEDS: Acetaminophen 500 MG TAB PO SCH ×4 (00:13→17:56)
[2020-10-10] MEDS: Cyclobenzaprine 10 MG TAB PO PRN ×2 (05:04→19:50)
--- NOTE | 2020-10-10 05:40 | PRG ---
DATE OF SERVICE: 10/09/2020 SUBJECTIVE: Hospital day 7, the patient was seen during morning rounds, sitting up in a chair, awake and alert, in no acute distress. He remains a GCS of 15. No acute events overnight. The patient has been working with physical therapy daily. His mother is currently awaiting approval from the court as she has custody of a 3-year-old and is not allowed to have anyone else live with her. Once this approval is completed, the patient will be released in his mother's care as he needs 24- hour supervision due to his head injury. Per the patient's mother, there is no one else that is able to stay with the patient. OBJECTIVE: VITAL SIGNS: Temperature 97.2 degrees Fahrenheit, blood pressure 118/80, heart rate 81, respiratory rate 18, oxygen saturation 97% on room air. GENERAL: Well-appearing middle-aged man, awake, alert, no acute distress. RESPIRATORY: Good inspiratory and expiratory effort. No respiratory distress. EXTREMITIES: Moving all extremities. Neurovascularly intact x4. NEUROLOGIC: GCS 15. LABORATORY AND RADIOGRAPHIC DATA: No new labs to evaluate. ASSESSMENT AND PLAN: 1. Status post ejection from horse. 2. Traumatic subarachnoid hemorrhage, stable. 3. Traumatic subdural hemorrhage, stable. 4. Longitudinal temporal bone fracture, stable. 5. Fractured left tympanic membrane, stable. 6. Nondisplaced fracture of the sacrococcygeal junction with control of pain. 7. Ringing of left ear from temporal bone fracture. 8. History of anxiety and bipolar, untreated. Plan is to continue supportive care and current pain regimen. Continue working with physical and occupational therapy. Continue working with speech therapy for cognition. Follow up with Case Management in regard to mother getting approval from the court to discharge the patient home with her for 24-hour care. The patient was seen and evaluated by Dr. Lantigua during morning rounds. Discussed plan of care with the patient, who is in agreement. Job ID: [id number] [facility]
[2020-10-10] MEDS: levETIRAcetam 500 MG TAB PO SCH (08:10)
[2020-10-10] MEDS: Gabapentin 300 MG CAP PO SCH ×2 (08:10→16:01)
[2020-10-10] MEDS: Silver Sulfadiazine 50 GM TUBE TOP SCH (08:11)
[2020-10-10] MEDS ORDERED: carBAMazepine 200 MG TAB PO SCH ×2 (10:45→17:00)
[2020-10-10] MEDS: Nicotine 14 MG PATCH TD SCH (15:54)
[2020-10-10 19:29] VITALS: BP 139/81; TEMP 98.1
--- NOTE | 2020-10-11 06:26 | PRG ---
DATE OF SERVICE: 10/10/2020 SUBJECTIVE: Hospital day 8, the patient was seen during morning rounds. Sitting up in his bed, awake and alert, in no acute distress. He remains at GCS of 15. Per nursing report, the patient and his mother were in a screaming match this morning. The mother is now stating that she will not accept the patient into her home. The patient states that he does have a friend who lives at home with him and would be willing to get his mother to give him a ride back to his home. Case Management is aware of this development and is currently working toward resolution of this as the patient is currently unable to be discharged home without a ride and 24-hour supervision afterwards. The patient has been working daily with Physical Therapy and ambulating throughout the unit. OBJECTIVE: VITAL SIGNS: Blood pressure 121/87, heart rate 83, respiratory rate 16, oxygen saturation 99% on room air, temperature 97.5 degrees Fahrenheit. GENERAL: Well-appearing middle-aged male, awake, alert, in no acute distress. HEENT: Unremarkable. CARDIAC: Regular rate and rhythm. RESPIRATORY: Good inspiratory and expiratory effort. No respiratory distress. No wheezing. EXTREMITIES: Moving all extremities. Neurovascularly intact x4. NEUROLOGIC: GCS of 15. LABORATORY AND RADIOGRAPHIC DATA: None to review this a.m. ASSESSMENT AND PLAN: 1. Status post ejection from horse. 2. Traumatic subarachnoid hemorrhage, stable. 3. Traumatic subdural hemorrhage, stable. 4. Longitudinal temporal bone fracture, stable. 5. Fractured left tympanic membrane, stable. 6. Nondisplaced fracture of the sacrococcygeal junction with control of pain. 7. Ringing in left ear from temporal bone fracture. 8. History of anxiety and bipolar, untreated. Plan is to continue supportive care and current pain regimen, will continue working with Physical and Occupational Therapy, will also continue working with Speech Therapy for cognition. We will follow up with Case Management as well as contact the mother to further investigate options upon discharge. The patient will likely be ready for discharge tomorrow. The patient was started on Tegretol 200 mg t.i.d. for his bipolar disorder. Case Management was also contacted about coordinating possible disability benefits as the patient would be unable to continue working at this time. The patient was seen and evaluated by Dr. Lantigua during morning rounds. Discussed plan of care with the patient, who is in agreement. Job ID: [id number] [facility]ERS[facility]
--- NOTE | 2020-10-12 09:36 | DIS ---
DATE OF ADMISSION: 10/02/2020 DATE OF DISCHARGE: 10/10/2020 CONSULTS: Neurosurgery, Dr. Driver. PROCEDURES: None. PRIMARY DIAGNOSES: 1. Ejection from horse. 2. Traumatic subarachnoid hemorrhage. 3. Traumatic subdural hemorrhage. 4. Multiple skull fractures and facial fractures. 5. Sacrococcygeal junction fracture, nondisplaced. 6. Left ruptured tympanic membrane. 7. Acute kidney injury, resolved. SECONDARY DIAGNOSES: Anxiety and bipolar, not treated. DISCHARGE MEDICATIONS: 1. Acetaminophen 1000 mg p.o. q.6 hours. 2. Tegretol 200 mg p.o. 3 times a day. 3. Flexeril 10 mg p.o. 3 times a day p.r.n. muscle spasms. 4. Gabapentin 300 mg p.o. 3 times a day. 5. Nicotine patch 14 mg transdermal q.24 hours. No discontinued medications. HISTORY OF PRESENT ILLNESS AND HOSPITAL COURSE: This is a 50-year-old gentleman who was riding a horse when he reports that broke and he was thrown off. The patient reports falling backward onto his back and hitting his head. He had no loss of consciousness. The patient was a level 2 trauma activation where he was evaluated and noted to have acute traumatic subarachnoid hemorrhages and a temporal bone fracture and also small traumatic subdural hemorrhage. The patient's vital signs were stable in the emergency room and during his hospital stay. Trauma Services were asked to admit the patient. Neurosurgery placed the patient on Keppra during his hospital stay. There was no need to be discharged on Keppra per Neurosurgery. The patient also was found to have a nodularity of adrenal gland and liver lesion. Recommend outpatient followup with an MRI. The patient had some drainage from his left ear after his tympanic membrane eventually ruptured. This did stop during his hospital stay. The patient had ringing in the left ear continuously. The patient had pain control issues due to his tail bone fracture and medications were adjusted. The patient had episodes of impulsiveness and crying spells. The patient and mother report that he has previously been in a psychiatric facility. The patient reports not liking how the medications made him feel. Due to the patient's head injuries and being impulsive, he was unable to be discharged home alone. The patient lives at home alone. Mother was initially planning to let the patient stay with him, but she has custody of a young child and the court denied her having anybody stay with her. Mother attempted to reach out to other family members, but no one was able to be with him 23/06. The patient was able to work with Physical Therapy and ambulated using a walker. The patient's GCS remained 15 during his entire hospital stay. The patient continued to have episodes of anger, aggression, and episodes of crying. The patient had an extended length of stay due to having difficulties discharging him home with family. Unfortunately, patient is unfunded and we could not get him into rehab. [facility] was consulted and evaluated the patient in which they determined he was depressed and felt suicidal, but had no plan. The patient was eventually excepted to [facility] for psychiatric care. Dr. Rousseau accepted. On the day of discharge, the patient was examined by Dr. Lantigua. His vital signs were stable, and his exam was unremarkable including cardiopulmonary and GI exam. The patient was deemed stable for discharge to the psychiatric care at [facility]. DISPOSITION: Stable. DISCHARGE INSTRUCTIONS: LOCATION: [facility]. DIET: Regular diet as tolerated. ACTIVITY: As tolerated, weightbearing as tolerated in all extremities, walker for comfort due to sacrococcygeal fracture. FOLLOWUP: Follow up with primary care physician for liver lesion and nodularity of the adrenal glands. Outpatient MRI recommended. Follow up with Neurosurgery in 2 to 3 weeks with a repeat head CT. Follow up with Orthopedic Surgery in 2 weeks for sacrococcygeal junction fracture. No need to follow up with Trauma Services. Please call for any questions. Job ID: [id number]
== END 2020-10-10 21:05 | DRG 964 ==
LOC: ERS 15:47 → SURG A 17:41
PROVIDERS: ADMIT Surgery; ATTEND Surgery
DX: S06.5X0A Traumatic subdural hemorrhage without loss of consciousness, initial encounter (principal); S32.10XA Unspecified fracture of sacrum, initial encounter for closed fracture; N17.9 Acute kidney failure, unspecified; S06.6X0A Traumatic subarachnoid hemorrhage without loss of consciousness, initial encounter; F41.9 Anxiety disorder, unspecified; S02.19XA Other fracture of base of skull, initial encounter for closed fracture; F31.9 Bipolar disorder, unspecified; F17.210 Nicotine dependence, cigarettes, uncomplicated; I10 Essential (primary) hypertension; R40.2412 Glasgow coma scale score 13-15, at arrival to emergency department; S02.92XA Unspecified fracture of facial bones, initial encounter for closed fracture; V80.010A Animal-rider injured by fall from or being thrown from horse in noncollision accident, initial encounter; H72.92 Unspecified perforation of tympanic membrane, left ear; Z20.828 Contact with and (suspected) exposure to other viral communicable diseases
CPT/HCPCS: 36415; 36416; 70450; 70480; 70486; 71260; 72125; 72220; 74177; 80048; 80053; 83690; 83735; 84100; 85025; 85610; 85730; 86850; 86900; 86901; 87635; 90471; 90662; 90715; 93005; 96365; 96375; 96376; G0008; J0690; J2270; J2405; Q9967; U0003

== ENCOUNTER 2021-04-21 11:46 | Emergency (ER) | payer SELFPAY ==
[2021-04-21] MEDS ORDERED: Lidocaine 1% PF 5 ML VIAL ONE (11:55)
[2021-04-21] MEDS ORDERED: Lidocaine 1% (PF) 30 ML VIAL ONE (12:22)
[2021-04-21] MEDS ORDERED: Boostrix 0.5 ML (Tdap) VIAL ONE ×2 (12:22→12:24)
== END 2021-04-21 13:57 ==
LOC: ERS 11:46
DX: S61.511A Laceration without foreign body of right wrist, initial encounter (principal); F17.210 Nicotine dependence, cigarettes, uncomplicated; Z23 Encounter for immunization; X78.8XXA Intentional self-harm by other sharp object, initial encounter
CPT/HCPCS: 12001; 90471; 90715; J2001